=== PATIENT | male | born 1950 | race Caucasian/White ===

== ENCOUNTER 2017-09-11 09:32 | Emergency (ER) | payer OTHER ==
[~2017-09-11 09:32] MED LIST: DOXAZOSIN2 MG PO; PRAVASTATIN SOD40 M2 PO; PROPECIA 1MG1 MG PO; [UNRECOGNIZED DRUG - CODE] SC
--- NOTE | 2017-09-11 10:56 | ED HEAD/FACIAL INJ COMPLAINT ---
History of Present Illness General Chief Complaint: Laceration Procedure Stated Complaint: BIBA HEAD LAC Source: patient, old records Exam Limitations: no limitations Vital Signs & Intake/Output Vital Signs & Intake/Output Vital Signs Date Time Temp Pulse Resp B/P B/P Pulse O2 O2 Flow FiO2 Mean Ox Delivery Rate 09/11 1225 98.0 80 20 130/80 99 Room Air 09/11 0939 78 20 135/88 99 Allergies Coded Allergies: NO KNOWN ALLERGIES (10/26/16) Reconcile Medications Finasteride 5 MG TABLET 1 TAB PO DAILY PROSTATE (Reported) Pravastatin Sodium 40 MG TABLET 1 TAB PO QPM CHOLESTEROL (Reported) Triage Note: PER PT WORKING ON COMPRESSOR UNDER PRESSURE SCREW SHOT OUT AND HIT PT IN HEAD NO LOC NOT ON THINNERS Triage Nurses Notes Reviewed? yes Onset: Abrupt Severity: mild Severity Numbers: 1 Location: frontal Method of Injury: direct blow Loss of Consciousness: no loss of consciousness Associated Symptoms: denies HPI: 66-year-old male presents to the ER for evaluation. He states that while at work earlier this morning he was working on a machine when a pistol broke and came down onto his head. There was no loss of consciousness. He denies any vision changes he is not on any blood thinners. He is complaining of stinging burning aching pain at the site of laceration and a mild headache. No vision changes no dizziness lightheadedness. There is no other injury no neck or back pain Past History Travel History Traveled to [place] past 21 day No Medical History Any Pertinent Medical History? see below for history Neurological: NONE EENT: NONE Cardiovascular: VHOL Respiratory: NONE Gastrointestinal: NONE Hepatic: NONE Renal: PROSTATE Musculoskeletal: NONE Psychiatric: NONE Endocrine: NONE Surgical History Surgical History: non-contributory Psychosocial History What is your primary language Kyrgyz Tobacco Use: Current Daily Use Daily Tobacco Use Amount/Type: => 5 Cigarettes daily Family History Hx Contributory? No Review of Systems Review of Systems Constitutional: Reports: see HPI. Comments Review of systems: See HPI, All other systems negative. Constitutional, no chills no fever, no malaise HEENT: no sore throat no congestion Cardiovascular: No chest pain Skin: no rashes, no change in skin Respiratory: No dyspnea no cough GI: No nausea no vomiting, Muscle skeletal: No joint pain, no back pain, Neurologic:headache Heme/endocrine: No bruising Physical Exam Physical Exam General Appearance: well developed/nourished, no apparent distress, alert, awake Cranial Nerves: normal hearing, normal speech, PERRL Comments: Well-developed well-nourished patient in no apparent distress. Head/Face: 2 cm superficial linear laceartion noted to r frontal scalp, no hematoma, rest of scalp atraumatic, no racoon eyes. no facial swelling Eyes: PERRL, EOMI, no conjunctival injection. No nystagmus Ear:External auditory canal and Tympanic membranes clear, no erythema, no hemotypanum Nose: atraumatic.Normal inspection: No bleeding Throat: Moist mucous membranes.Pharynx normal. Neck: Supple, no lymphadenopathy, FROM Back: FROM Respiratory: No respiratory distress. Patient speaking in full complete sentences. Breath sounds clear to auscultation bilaterally: NO W/R/R Extremities: full range of motion Neuro: awake, alert, and oriented to person, place and time. There were no obvious focal neurologic abnormalities. Skin: Warm & dry;No appreciable rash on exposed skin Psych: Mood affect normal, normal memory normal judgment. Diagram Head: 1) laceration Progress Differential Diagnosis: facial fracture, ICH, orbit fracture, skull fracture Plan of Care: Orders Procedure Date/time Status CT HEAD WO IV CONTRAST 09/11 937 Active CAT scan ordered from triage. Wound thoroughly irrigated normal saline and Betadine. 9 SUTURES 4-0 PLACED by pa student under my direct supervision. . I discussed with the patient is CAT scan findings patient tolerated procedure well discussed with him plan of care return precautions including signs of infection to look out for . i answered all of his questions, he feels comfortable with plan Diagnostic Imaging: Viewed by Me: CT Scan. Discussed w/RAD: CT Scan. Radiology Impression: PATIENT: KO BROWN PRESENT AGE: 66 PATIENT ACCOUNT NO: [id number] : 50 LOCATION: [facility] ORDERING PHYSICIAN: Alphonso Prieto MD SERVICE DATE: 09/11/17 EXAM TYPE: CAT - CT HEAD WO IV CONTRAST EXAMINATION: CT HEAD WITHOUT CONTRAST CLINICAL INFORMATION: Hematoma. Lac to head after pressurize screw hit patient in head. COMPARISON: None. TECHNIQUE: Contiguous axial imaging was performed from the skull base to vertex without intravenous administration of contrast. DLP: 618 mGy-cm. FINDINGS: There is soft tissue laceration about the right frontal scalp with minimal subgaleal hematoma. There is no associated calvarial fracture. There is no intracranial hemorrhage, extra-axial collection, or mass effect. The ventricles are normal in size and configuration without evidence of hydrocephalus. There is moderate to severe polypoid mucosal thickening throughout the paranasal sinuses. Mastoid air cells are clear. IMPRESSION: - Soft tissue laceration about the right frontal scalp with minimal subgaleal hematoma. No calvarial fracture. - Intracranial hemorrhage or extra-axial collection. - Moderate to severe polypoid mucosal thickening throughout the paranasal sinuses. DICTATED BY: Jorge Mark MD DATE/TIME DICTATED:09/11/171204 WEDDING DAY COORDINATOR:IVIS DATE/TIME TRANSCRIBED:09/11/171204 CONFIDENTIAL, DO NOT COPY WITHOUT APPROPRIATE AUTHORIZATION. <Electronically signed in Other Vendor System> SIGNED BY: Jorge Mark MD 09/11/17 1212 Departure Departure Time of Disposition: 1215 Disposition: HOME OR SELF CARE Condition: Stable Clinical Impression Primary Impression: Scalp laceration Referrals: Jo SMALL,Louie Han (PCP/Family) Additional Instructions: Keep area clean and covered as discussed, bacitracin daily. Return to ER in 7- 10 days for suture removal. Please understand that foreign bodies such as glass or wood may not be visible to the naked eye or on plain x-rays. If the wound becomes red, swollen, increasingly more painful or if there is any drainage from the wound, please have it reevaluated by a physician for the possibility of a retained foreign body. Departure Forms: Customer Survey General Discharge Information Industrial Accident Report Procedures Laceration/Wound Repair Laceration/Wound Repair: Wound Location: head Wound's Depth, Shape: linear, superficial Wound Length (cm): 2 Wound Explored: clean, no foreign body removed, irrigated extensively Irrigated w/ Saline (ccs): 200 Betadine Prep? Yes Anesthesia: 1% lidocaine Wound Repaired With: sutures, Steri-strips Suture Size/Type: 4:0 Number of Sutures: 9 Sterile Dressing Applied: Yes Tetanus Status: up to date
[2017-09-11] MEDS ORDERED: FINASTERIDE5 M1 PO (11:20)
--- NOTE | 2017-09-11 12:12 | CT SCAN REPORT ---
EXAMINATION: CT HEAD WITHOUT CONTRAST CLINICAL INFORMATION: Hematoma. Lac to head after pressurize screw hit patient in head. COMPARISON: None. TECHNIQUE: Contiguous axial imaging was performed from the skull base to vertex without intravenous administration of contrast. DLP: 618 mGy-cm. FINDINGS: There is soft tissue laceration about the right frontal scalp with minimal subgaleal hematoma. There is no associated calvarial fracture. There is no intracranial hemorrhage, extra-axial collection, or mass effect. The ventricles are normal in size and configuration without evidence of hydrocephalus. There is moderate to severe polypoid mucosal thickening throughout the paranasal sinuses. Mastoid air cells are clear. IMPRESSION: - Soft tissue laceration about the right frontal scalp with minimal subgaleal hematoma. No calvarial fracture. - Intracranial hemorrhage or extra-axial collection. - Moderate to severe polypoid mucosal thickening throughout the paranasal sinuses.
[2017-09-11 12:25] VITALS: BP 130/80
== END 2017-09-11 12:27 ==
LOC: ERH 09:32
DX: S01.01XA Laceration without foreign body of scalp, initial encounter (principal); W20.8XXA Other cause of strike by thrown, projected or falling object, initial encounter; Y92.9 Unspecified place or not applicable; Y93.9 Activity, unspecified
CPT/HCPCS: J2001

== ENCOUNTER 2017-09-18 09:41 | Emergency (ER) | payer OTHER ==
[~2017-09-18] VITALS: Ht 175.3 cm; Wt 111.1 kg
[~2017-09-18 09:41] MED LIST changes: +FINASTERIDE5 M1 PO
[2017-09-18 09:57] VITALS: BP 145/80
--- NOTE | 2017-09-18 10:02 | ED ANIMAL BITE/WOUND CHECK ---
History of Present Illness General Chief Complaint: Suture Removal/Wound Recheck Stated Complaint: SUTURE REMOVAL Source: patient Exam Limitations: no limitations Vital Signs & Intake/Output Vital Signs & Intake/Output Vital Signs Date Time Temp Pulse Resp B/P B/P Pulse O2 O2 Flow FiO2 Mean Ox Delivery Rate 09/18 0957 98.6 77 18 145/80 98 Room Air Allergies Coded Allergies: NO KNOWN ALLERGIES (10/26/16) Reconcile Medications Finasteride 5 MG TABLET 1 TAB PO DAILY PROSTATE (Reported) Pravastatin Sodium 40 MG TABLET 1 TAB PO QPM CHOLESTEROL (Reported) Triage Note: 66 YO MALE TO TRIAGE FOR SUTURE REMOVAL FROM TOP OF HEAD Triage Nurses Notes Reviewed? yes Onset: Abrupt Duration: week(s): (1), better, gone now Timing: single episode today Injury Environment: home Is Injury an Animal Bite? No HPI: 66-year-old male presents for suture removal. He was seen about one week ago for a laceration to the top of his head. He was hit in head with a piston. There is no loss of conscious. He denies any headaches vomiting changes in vision. This been no redness discharge or fever. He feels well has no concerns. (Tyron Molina) Past History Travel History Traveled to [place] past 21 day No Medical History Any Pertinent Medical History? see below for history Neurological: NONE EENT: NONE Cardiovascular: VHOL Respiratory: NONE Gastrointestinal: NONE Hepatic: NONE Renal: PROSTATE Musculoskeletal: NONE Psychiatric: NONE Endocrine: NONE Surgical History Surgical History: non-contributory Psychosocial History What is your primary language Maltese Tobacco Use: Never used Family History Hx Contributory? No (Tyron Molina) Review of Systems Review of Systems Constitutional: Reports: no symptoms. EENTM: Reports: no symptoms. Respiratory: Reports: no symptoms. Cardiovascular: Reports: no symptoms. GI: Reports: no symptoms. Genitourinary: Reports: no symptoms. Musculoskeletal: Reports: no symptoms. Skin: Reports: see HPI (LACERATION). Neurological/Psychological: Reports: no symptoms. Hematologic/Endocrine: Reports: no symptoms. Immunologic/Allergic: Reports: no symptoms. All Other Systems: Reviewed and Negative (Tyron Molina) Physical Exam Physical Exam General Appearance: well developed/nourished, no apparent distress, alert, awake Head: THERE IS A 2.5 CM LINEAR HORIZONTAL LACERATION LOCATED ON THE PARIETAL SCALP. sUTURES ARE IN PLACE THE WOUND IS WELL-HEALED. tHERE IS NO ERYTHEMA DISCHARGE OR SWELLING. Eyes: Bilateral: normal appearance, EOMI. Ears, Nose, Throat: hearing grossly normal Neck: normal inspection, supple, full range of motion Respiratory: no respiratory distress Extremities: normal range of motion Neurologic/Psych: no motor/sensory deficits, awake, alert, oriented x 3, normal gait Skin: intact, normal color, warm/dry (Tyron Molina) Progress Differential Diagnosis: cellulitis Plan of Care: 66 Y/O male presents for suture removal. The wound is well-healed. There is no erythema discharge or signs of infection. Sutures removed without Complication. Discussed wound care procedures and return precautions patient agrees the plan case discussed with Dr. Acevedo he agrees. (Tyron Molina) Departure Departure Disposition: HOME OR SELF CARE Clinical Impression Primary Impression: Visit for suture removal Referrals: Jo SMALL,Louie Han (PCP/Family) Additional Instructions: Keep the area clean and dry. [place] for signs of infection like redness swelling discharge or pain. Tylenol for pain. Follow-up with YOUr primary care doctor for a recheck. Return with any concerns. Departure Forms: Customer Survey General Discharge Information (Tyron Molina) Departure Time of Disposition: 2018 Condition: Stable PA/[employer]OW [employer] Co-Sign Statement Statement: ED Attending supervision documentation- [] I saw and evaluated the patient. I have also reviewed all the pertinent lab results and diagnostic results. I agree with the findings and the plan of care as documented in the PA's/[employer]'s documentation. [X] I have reviewed the ED Record and agree with the PA's/[employer]'s documentation. [] Additions or exceptions (if any) to the PAs/WINDOW SH[employer]'s note and plan are summarized below: [] (Serge Acevedo DO)
== END 2017-09-18 10:07 ==
LOC: ERH 09:41
DX: Z48.02 Encounter for removal of sutures (principal)